=== PATIENT | male | born 1945 | race Caucasian/White ===

== ENCOUNTER 2016-12-16 06:05 | Day surgery (SDC) | payer OTHER ==
[~2016-12-16] VITALS: Ht 172.7 cm; Wt 67.1 kg
[2016-12-16 07:28] VITALS: BP 138/75
[2016-12-16 12:15] VITALS: BP 118/67
== END 2016-12-16 11:10 | disposition home or self-care (01) ==
LOC: DS 06:05 → GI 08:30 → OR 08:30 → DS 11:10
PROVIDERS: Internal Medicine
PROC: 0D728ZZ Dilation of Middle Esophagus, Via Natural or Artificial Opening Endoscopic (ICD-10-PCS; principal; 2016-12-16 08:30)
PROC: 0D738ZZ Dilation of Lower Esophagus, Via Natural or Artificial Opening Endoscopic (ICD-10-PCS; 2016-12-16 08:30)
DX: K22.2 Esophageal obstruction (principal); R13.10 Dysphagia, unspecified; K21.9 Gastro-esophageal reflux disease without esophagitis; I73.9 Peripheral vascular disease, unspecified; Z85.01 Personal history of malignant neoplasm of esophagus; Z98.61 Coronary angioplasty status; Z87.891 Personal history of nicotine dependence; Z68.22 Body mass index [BMI] 22.0-22.9, adult
CPT/HCPCS: 43220; 43235; C1769; J1610; J2250; J2310; J3010; J3490

== ENCOUNTER 2017-06-02 06:29 | Day surgery (SDC) | payer OTHER ==
[~2017-06-02] VITALS: Ht 172.7 cm; Wt 67.6 kg
[2017-06-02 06:48] VITALS: BP 100/55
[2017-06-02 09:56] VITALS: BP 122/64
== END 2017-06-02 10:40 | disposition home or self-care (01) ==
LOC: GI 06:29
PROVIDERS: Internal Medicine
PROC: 0DB58ZX Excision of Esophagus, Via Natural or Artificial Opening Endoscopic, Diagnostic (ICD-10-PCS; principal; 2017-06-02 07:30)
PROC: 0D758ZZ Dilation of Esophagus, Via Natural or Artificial Opening Endoscopic (ICD-10-PCS; 2017-06-02 07:30)
DX: K22.10 Ulcer of esophagus without bleeding (principal)
CPT/HCPCS: 43235; C1769; J1200; J1610; J2250; J2310; J3010; J3490

== ENCOUNTER 2018-09-14 06:42 | Day surgery (SDC) | payer OTHER ==
[~2018-09-14] VITALS: Ht 172.7 cm; Wt 63.5 kg
[2018-09-14 07:50] VITALS: BP 115/61
[2018-09-14 10:47] VITALS: BP 118/59
== END 2018-09-14 11:00 | disposition home or self-care (01) ==
LOC: DS 06:42 → GI 10:30 → OR 10:30 → DS 11:00
PROVIDERS: Internal Medicine
PROC: 0W3P8ZZ Control Bleeding in Gastrointestinal Tract, Via Natural or Artificial Opening Endoscopic (ICD-10-PCS; principal; 2018-09-14 10:30)
PROC: 0D758ZZ Dilation of Esophagus, Via Natural or Artificial Opening Endoscopic (ICD-10-PCS; 2018-09-14 10:30)
DX: Q27.33 Arteriovenous malformation of digestive system vessel (principal); K92.2 Gastrointestinal hemorrhage, unspecified; K21.9 Gastro-esophageal reflux disease without esophagitis; K22.2 Esophageal obstruction; I73.9 Peripheral vascular disease, unspecified; R13.10 Dysphagia, unspecified; Z68.21 Body mass index [BMI] 21.0-21.9, adult; Z87.891 Personal history of nicotine dependence; Z85.01 Personal history of malignant neoplasm of esophagus
CPT/HCPCS: 43235; C1769; J1200; J1610; J2250; J2310; J3010; J3490

== ENCOUNTER 2018-11-23 07:16 | Day surgery (SDC) | payer OTHER ==
[~2018-11-23] VITALS: Ht 172.7 cm; Wt 64.0 kg
[2018-11-23 07:57] VITALS: BP 128/69
[2018-11-23 11:25] VITALS: BP 123/70
== END 2018-11-23 11:05 | disposition home or self-care (01) ==
LOC: GI 07:16 → OR 10:30 → GI 11:05
DX: K22.719 Barrett's esophagus with dysplasia, unspecified (principal); K44.9 Diaphragmatic hernia without obstruction or gangrene; Q27.30 Arteriovenous malformation, site unspecified; M13.88 Other specified arthritis, other site; Z98.890 Other specified postprocedural states; Z95.1 Presence of aortocoronary bypass graft; Z88.8 Allergy status to other drugs, medicaments and biological substances; Z72.89 Other problems related to lifestyle; Z79.899 Other long term (current) drug therapy; Z93.3 Colostomy status; Z90.49 Acquired absence of other specified parts of digestive tract; Z95.2 Presence of prosthetic heart valve; Z85.01 Personal history of malignant neoplasm of esophagus
CPT/HCPCS: 43235; J1200; J1610; J2250; J2310; J3010; J3490

== ENCOUNTER 2019-02-18 10:21 | Inpatient (IN) | payer OTHER ==
[~2019-02-18] VITALS: Ht 172.7 cm; Wt 67.1 kg
[2019-02-18 10:24] VITALS: Ht 172.7 cm; Wt 67.1 kg
--- NOTE | 2019-02-18 10:24 | NUR ---
PT BIB [facility] WITH C/O GENERALIZED WEAKNESS X1 DAY. PER PARAMEDICS PT WAS D/C FROM Wednesday WITH DX PNEUMONIA "BUT ISN'T FEELING BETTER" PER PARAMEDICS PT CHECKED HIS BP AT HOME AND THE SBP WAS "IN THE 60'S" WITH THE DBP "IN THE 30'S". ON SCENE PT WAS HYPOTENSIVE AND RECEIVED 500 NS WIDE OPEN COIL BUILDER. UPON ARRIVAL, PT AAOX4, SKIN PINK DRY AND WARM, PT HYPOTENSIVE, PT SPEAKING FULL CLEAR SENTENCES, PT NOTED TO HAVE A COLOSTOMY BAG PER PT "FROM MY ABDOMINAL AORTA IN 2006 THEY WEREN'T ABLE TO FIX IT" PT DENIES SOB AND/OR CHEST PAIN AT THIS TIME, PT PAIN LEVEL 6/10 "FROM MY ARTHRITIS IN MY BACK" PT GOWNED AND PLACED ON FULL CM, NSR
--- NOTE | 2019-02-18 10:31 | NUR ---
MD HERRERA AT BEDSIDE PERFORMING MSE
--- NOTE | 2019-02-18 10:48 | NUR ---
PORTABLE XRAY AT BEDSIDE
--- NOTE | 2019-02-18 10:53 | NUR ---
RT AT BEDSIDE
--- NOTE | 2019-02-18 10:56 | NUR ---
LAB AT BEDSIDE
--- NOTE | 2019-02-18 11:05 | NUR ---
PT TALKING WITH AT BEDSIDE, RESPS E/U, SKIN PINK DRY AND WARM, PT HAS ASYMPTOMATIC HYPOTENSION AT THIS TIME, PT REMINDED TO PROVIDE URINE SPECIMEN CALLIE, WARM BLANKET PROVIDED PER PT REQUEST AND COMFORT, AT BEDSIDE, CALL LIGHT WITHIN REACH, INSTRUCTED TO CALL IF ANY ASSISTANCE NEEDED
--- NOTE | 2019-02-18 11:06 | NUR ---
MD HERRERA MADE AWARE OF PT VSS. PER MD HERRERA MONITOR BP DURING NS BOLUS INFUSION PER EMAR
[2019-02-18 11:20] LABS: BASOPHIL % 0.1 % (0-2); PLATELET COUNT 154 x10^3mcL (130-400)
[2019-02-18 11:23] LABS: RED CELL DISTRIBUTION WIDTH 17.4 % (11.5-14.5)
[2019-02-18 11:28] LABS: CALCIUM 8.6 mg/dL (8.5-10.1); CARBON DIOXIDE 35.4 mmol/L (21-32); CHLORIDE SERUM 108 mmol/L (98-107); CREATININE SERUM 2.1 mg/dL (0.7-1.3); GLUCOSE SERUM 102 mg/dL (74-106); POTASSIUM SERUM 3.8 mmol/L (3.5-5.1); SODIUM SERUM 145 mmol/L (136-145)
[2019-02-18 11:40] LABS: ALKALINE PHOSPHATASE 42 U/L (46-116); ALT/SGPT 24 U/L (16-63); AST/SGOT 30 U/L (15-37); BILIRUBIN TOTAL 0.5 mg/dL (0.20-1.00); LIPASE 153 IU/L (73-393); T4(THYROXINE) 7.2 ug/dL (4.7-13.3)
[2019-02-18 11:41] LABS: ALBUMIN 2.2 g/dL (3.4-5.0); CHOLESTEROL 60 mg/dL (<200); HDL CHOLESTEROL 12 mg/dL (40-60)
--- NOTE | 2019-02-18 12:00 | NUR ---
PT IN POSITION OF COMFORT, RESPS E/U, AT BEDSIDE, CALL LIGHT WITHIN REACH
--- NOTE | 2019-02-18 12:18 | NUR ---
PT UNABLE TO PROVIDE URINE SPECIMEN AT THIS TIME, PER MD HERRERA VERBAL ORDERS PERFROM STRAIGHT CATH, PT INFORMED AND REFUSED, MD HERRERA MADE AWARE
--- NOTE | 2019-02-18 12:51 | NUR ---
PT RESTING IN POSITION OF COMFORT WITH HIS AT BEDSIDE, RESPS E/U, MD HERRERA MADE AWARE OF NEW VSS
--- NOTE | 2019-02-18 13:01 | NUR ---
PER MD HERRERA VERBAL ORDER, OKAY TO GIVE WATER, WATER GIVEN
--- NOTE | 2019-02-18 13:49 | NUR ---
PT ASLEEP BUT AROUSABLE IN POSITION OF COMFORT, RESPS E/U, DAUGHTER AT BEDSIDE
[2019-02-18] MEDS ORDERED: AMITRIPTYLINE H10 MG PO (13:57)
[2019-02-18] MEDS ORDERED: ASPIR 8181 MG PO (13:57)
[2019-02-18] MEDS ORDERED: BACLOFEN5 MG PO (13:58)
[2019-02-18] MEDS ORDERED: DOXYCYCLINE50 MG PO ×2 (14:01→14:02)
[2019-02-18] MEDS ORDERED: CARVEDILOL6.25 M1 PO (14:01)
[2019-02-18] MEDS ORDERED: FERROUS SULFAT325 M2 PO (14:02)
[2019-02-18] MEDS ORDERED: FENOFIBRATE145 M1 PO (14:02)
[2019-02-18] MEDS ORDERED: ZESTRIL5 MG PO (14:03)
[2019-02-18] MEDS ORDERED: FUROSEMIDE40 MG PO (14:04)
[2019-02-18] MEDS ORDERED: FLOVENT HF0.11 MG/A1 INH (14:06)
[2019-02-18] MEDS ORDERED: ATORVASTATIN CA40 M1 PO (14:09)
[2019-02-18] MEDS ORDERED: METOCLOPRAMIDE H5 M1 PO (14:09)
[2019-02-18] MEDS ORDERED: AMOXICILLIN875 MG PO (14:10)
[2019-02-18] MEDS ORDERED: PEPCID20 MG PO (14:11)
[2019-02-18] MEDS ORDERED: PROBIOTIC250 MG PO (14:11)
[2019-02-18] MEDS ORDERED: POTASSIUM CHLO10 MEQ PO (14:11)
[2019-02-18 14:18] LABS: UA SPECIFIC GRAVITY <=1.005 (1.005-1.035); microscopic required? YES; urine erythrocyte 1+ (NEGATIVE)
[2019-02-18 14:21] LABS: AMPHETAMINE QUAL UR NONE DETECTED (See below)
[2019-02-18 14:49] VITALS: BP 135/61
--- NOTE | 2019-02-18 15:01 | NUR ---
RECEIVED PT FROM ER, PT ADMIT FOR HYPOTENSION, PNA, PT IS A/O X4, VERBAL RESPONSIVE, ABLE TO TELL WHAT HE NEEDS. LUNG SOUND DIM CAROL ANN BASE, DENY ANY SOB, AT THIS TIME, PO2 95% IN ROOM AIR, PT IS ON TELE 14, NSR, DENY ANY CHEST PAIN OR DISCOMFORT, BOWEL SOUND PRESENT ALL 4 QUADRANTS, NO DISTENTION, NO TENDER. PEDAL PULSE PRESENT BOTH FEET, NO EDEMA, IV AT RIGHT FA, NO LEAKING, NO INFITLRAITON. ALL ADLS ASSIST, ALL NEED MET, CALL LIGHT IN REACH, WILL CONTINUE TO MONITOR.
[2019-02-18 16:10] VITALS: BP 130/62
--- NOTE | 2019-02-18 18:07 | NUR ---
PATIENT SITTING UP ON SIDE OF BED EATING DINNER AT THIS TIME. PATIENT TOLERATING DIET WELL. NO APPARENT DISTRESS OR DISCOMFORT NOTED. ALL NEEDS ATTENDED TO. WILL CONTINUE TO MONITOR
--- NOTE | 2019-02-18 18:30 | NUR ---
PATIENT RESTING COMFORTABLY IN BED AT THIS TIME. NO APPARENT DISTRESS OR DISCOMFORT NOTED. IV PATENT AND INTACT. ALL QUESTIONS AND CONCERNS ADDRESSED. SAFETY PRECAUTIONS MAINTAINED. ALL NEEDS ATTENDED TO. WILL ENDORSE ALL CARE TO LEARNING AND DEVELOPMENT ANALYST NURSE
--- NOTE | 2019-02-18 19:30 | NUR ---
REC'D PT FROM DAY NURSE. FAMILY AT BEDSIDE. PT RESTING IN BED. AAOX4, SPEECH CLEAR, FOLLOWS COMMANDS. TELE 14. DENIES CP, DIZZINESS, OR PALPITATIONS. DENIES RESP DISTRESS OR SOB. BREATHING EVEN/UNLABORED ON RA. ABD SOFT/ROUND. RLQ COLOSTOMY WITH DARK GREEN SEMISOLID STOOLS. DENIES TENDERNESS, PAIN, OR N/V. VOIDING FREELY, DENIES DYSURIA. UNABLE TO ASSESS GENITAL REGION D/T FAMILY AT BEDSIDE. WILL CHECK LATER. MILD GEN WEAKNESS. AMB WITH CANE AT HOME. IV TO RFA PATENT AND INFUSING, SITE WNL. CALL LIGHT WITHIN REACH, BED AT LOWEST POSITION. WILL CONTINUE TO MONITOR.
[2019-02-18 20:20] VITALS: BP 127/59
--- NOTE | 2019-02-18 20:24 | NUR ---
REC'D CALL FROM TELE. PT HAD ONE RUN OF GERARDO. PT RESTING IN BED. ASYMPTOMATIC. DENIES ANY CP, PALPTATIONS, OR SOB. RESPIRATIONS EVEN/UNLABORED ON RA. BP 127/59, MAP 81, HR 91. RR 18, SPO2 92% ON RA. SPOKE TO DR. RODRIGUES AND MADE AWARE. ALSO INFORMED RESIDENT OF DUPLICATE BLOOD CULTURES WHEN NEED TO BE D/C'D.
--- NOTE | 2019-02-18 21:41 | NUR ---
DUE MEDS GIVEN. DAUGHTER AND AT BEDSIDE. ASSISTED PT WITH WOUND CARE: PT CLEANED TIP OF PENIS AND FORESKIN WITH SALINE SOAKED GAUZE AND APPLIED HYDROCORTISONE CREAM. 4X4 GAUZE APPLIED ON TOP. ERYTHEMA NOTED TO AROUND FORESKIN AND TIP OF PENIS.
--- NOTE | 2019-02-18 22:41 | NUR ---
SPOKE TO DR. RODRIGUES. 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 PT REPORTS PAIN TO LLE WITH PALPATION D/T TENDONITIS. NO PAIN AT REST. BLE EQUAL IN SIZE. NO REDNESS NOTED. UNABLE TO TOLERATE SCDS D/T PAIN. REC HEP SQ AND US.
--- NOTE | 2019-02-19 01:47 | NUR ---
PT C/O MILD SOB. BREATHING EVEN/UNLABORED ON RA, SPO2 88%. 1L NC APPLIED WITH HUMIDIFIER PER REQUEST. PER DAUGHTER, PT GETS NOSE BLEEDS WITHOUT HUMIDIFIER. SPO2 93% ON 1L NC. CALL LIGHT WITHIN REACH, BED AT LOWEST POSITION. WILL CONTINUE TO MONITOR.
--- NOTE | 2019-02-19 05:15 | NUR ---
BP 165/86, MAP 112, HR 103. SPOKE TO DR. RODRIGUES AND MADE AWARE. STATED WILL ORDER SOMETHING.
[2019-02-19 05:33] VITALS: BP 165/86
--- NOTE | 2019-02-19 06:04 | NUR ---
PT C/O SOB. SPO2 90% ON 1L O2 VIA NC WITH HUMIDIFIER. INCREASED TO 2L NC, SPO2 94%. FINE CRACKLES AUSCULTATED TO BASES. RECHECKED BP 172/75, MAP 107, HR 107. SPOKE TO DR. RODRIGUES. PER DAUGHTER, PT'S WOOD LATHE OPERATOR STATED PT'S COREG SHOULD BE REDUCED FROM 6.25 TO 3.125 MG. RESIDENT STATED WILL ORDER COREG, INITIATE RT PROTOCOL (REC XOPENEX D/T TACHYCARDIA), AND REDUCE IVF TO 50 ML/HR.
[2019-02-19 06:20] VITALS: BP 165/86
[2019-02-19 06:37] LABS: CALCIUM 8.6 mg/dL (8.5-10.1); CARBON DIOXIDE 27.8 mmol/L (21-32); CHLORIDE SERUM 107 mmol/L (98-107); CREATININE SERUM 1.6 mg/dL (0.7-1.3); GLUCOSE SERUM 84 mg/dL (74-106); MAGNESIUM 1.5 mg/dL (1.8-2.4); PHOSPHOROUS 2.8 mg/dL (2.5-4.9); POTASSIUM SERUM 3.7 mmol/L (3.5-5.1); SODIUM SERUM 143 mmol/L (136-145)
[2019-02-19 06:50] LABS: BASOPHIL % 0.2 % (0-2); PLATELET COUNT 170 x10^3mcL (130-400)
[2019-02-19 07:13] LABS: RED CELL DISTRIBUTION WIDTH 17.8 % (11.5-14.5)
--- NOTE | 2019-02-19 07:35 | NUR ---
RECIEVED PT SITTING UP IN CHAIR WITH FAMILY AT BEDSIDE. A/O X4 WITH NO C/O DISTRESS, SOB, OR PAIN. TELE MONITOR#14 CONNECTED TO PT, DENIES CP OR PRESSURE. LUNGS DIM LLL, ON 2LPM O2 NC 96% SAT. RLQ COLOSTOMY INTACT AND PATENT. IV IN RFA INTACT AND PATENT WITH NS RUNNING AT 70/HR. SAFETY PRECAUTIONS IN PLACE, CALL LIGHT WITHIN REACH, WILL MONITOR.
[2019-02-19 08:32] VITALS: BP 152/78
--- NOTE | 2019-02-19 08:45 | NUR ---
DR URBINA AND TEAM AT BEDSIDE WITH PT AND FAMILY DISCUSSING TREATMENTS AND POC, FAMILY AND PT VERBALIZE AN UNDERSTANDING. NO NEW ORDERS AT THIS TIME.
--- NOTE | 2019-02-19 12:17 | NUR ---
PT RESTING IN CHAIR AT THIS TIME WITH FAMILY AT BEDSIDE. NO C/O PAION, DISTRESS, OR SOB. WILL CONTINUE TO MONITOR.
[2019-02-19 12:22] VITALS: BP 116/55
[2019-02-19 16:24] VITALS: BP 111/54
--- NOTE | 2019-02-19 17:49 | NUR ---
PT STABLE AT THIS TIME WITH NO C/O PAIN, DISTRESS, OR SOB. A/O X4 WITH NO REINOSO OR DIZZINESS. TELE#14 CONNECTED TO PT. DENIES CP OR PRESSURE. PT ON 2 LPM O2 NC. RLQ COLOSTOMY INTACT AND DRAINING SOFT BROWN STOOL. SKIN KEPT CLEAN AND DRY ALL SHIFT. OUTPUT OF 150 ML TODAY. SALINE LOCK INTACT AND PATENT AT RFA, NO REDNESS OR INFLAMMATION NOTED. FAMILY AT BEDSIDE. SAFETY PRECAUTIONS IN PLACE, CALL LIGHT WITHIN REACH, WILL ENDORSE CARE TO NIGHT NURSE.
--- NOTE | 2019-02-19 19:10 | NUR ---
REC'D PT FROM DAY NURSE. FAMILY AT BEDSIDE. PT SITTING ON RECLINER. AAOX4, SPEECH CLEAR, FOLLOWS COMMANDS. TELE 14. DENIES CP, DIZZINESS, OR PALPITATIONS. REPORTS MILD SOB WITH MOVEMENT. RESPIRATIONS EVEN/UNLABORED ON 2L O2 VIA NC WITH HUMIDIFIER, SPO2 97%. 02 REDUCED TO 1L NC, SPO2 95%. NO EDEMA NOTED. ABD SOFT/ROUND. DENIES ABD PAIN, TENDERNESS, OR N/V. COLOSTOMY TO RLQ WITH LOOSE BROWN STOOL. STOMA BEEFY RED. VOIDING FREELY USING URINAL. GEN WEAKNESS. AMB WITH WALKER AT HOME. IV TO RFA FLUSHED AND PATENT, SITE WNL. CALL LIGHT WITHIN REACH, BED AT LOWEST POSITION. WILL CONTINUE TO MONITOR.
[2019-02-19 20:39] VITALS: BP 135/60
--- NOTE | 2019-02-20 00:54 | NUR ---
PT RESTING IN BED WITH EYES CLOSED. NO SIGNS OF DISTRESS NOTED. BREATHING EVEN/UNLABORED ON 1L O2 VIA NC, WITH HUMIDIFIER. DAUGHTER SLEEPING AT BEDSIDE ON RECLINER. CALL LIGHT WITHIN REACH, BED AT LOWEST POSITION. WILL CONTINUE TO MONITOR.
--- NOTE | 2019-02-20 03:47 | NUR ---
REC'D CALL FROM TELE. PT HAD 8 SECONDS OF SVT. HR UP TO 160. PT SLEEPING IN BED. DENIES ANY CP, PALPITATIONS, OR SOB. DAUGHTER AT BEDSIDE STATES PT HAS BEEN SLEEPING WELL. VSS. TELE 14 CURRENTLY READING NSR WITH PVC'S. HR 96. DR. RODRIGUES MADE AWARE AND ORDERED STAT EKG. CARDIOPULMONARY NOTIFIED.
[2019-02-20 03:50] VITALS: BP 119/63
--- NOTE | 2019-02-20 03:59 | NUR ---
DR. RODRIGUES MADE AWARE OF STAT EKG RESULTS: NSR WITH R BBB. NO CHANGES IN ORDERS.
[2019-02-20 05:30] VITALS: BP 135/69
--- NOTE | 2019-02-20 06:12 | NUR ---
PT AWAKE AND RESTING IN BED. BREATHING EVEN/UNLABORED ON 1L O2 VIA NC. REPORTS MILD SOB BUT TOLERABLE. DENIES ANY PAIN. IV TO RFA IN PLACE. DAUGHTER AT BEDSIDE. VSS. WILL ENDORSE TO DAY NURSE.
[2019-02-20 06:52] LABS: BASOPHIL % 0.3 % (0-2); PLATELET COUNT 157 x10^3mcL (130-400)
[2019-02-20 07:08] LABS: RED CELL DISTRIBUTION WIDTH 17.5 % (11.5-14.5)
[2019-02-20 07:11] LABS: CARBON DIOXIDE 27.5 mmol/L (21-32); CHLORIDE SERUM 108 mmol/L (98-107); CREATININE SERUM 1.3 mg/dL (0.7-1.3); GLUCOSE SERUM 80 mg/dL (74-106); MAGNESIUM 1.6 mg/dL (1.8-2.4); PHOSPHOROUS 2.3 mg/dL (2.5-4.9); POTASSIUM SERUM 3.4 mmol/L (3.5-5.1); SODIUM SERUM 145 mmol/L (136-145)
--- NOTE | 2019-02-20 07:23 | NUR ---
REPORT TAKEN FROM COMPUTER NETWORK AND SYSTEMS ENGINEER NURSE AT THE BEDSIDE. PT RESTING BUT WOKE FOR REPORT, THOUGH STILL DROWSY. DENIED PAIN, IN NAD. WILL CONTINUE TO MONITOR.
[2019-02-20 09:16] VITALS: BP 120/61
[2019-02-20 12:04] VITALS: BP 130/51
--- NOTE | 2019-02-20 13:26 | NUR ---
Initial Nutrition Assessment: (254T-B) SILVER CANTRELL 73M Dx: Hypotension, PNA PMHx: HTN, Diverticilitis w/ resection & colostomy bag 2007, Cholecystectomy, Esophageal CA, s/p TAVR, s/p MVR PSHx: Cholecystectomy, TAVR, MVR Labs: K 3.4 L, BUN 21 H, Alb 2.2 L, Phos 2.3 L, Alk Phos 42 L, CK 24 L, HDL 12 L, Mg 1.6 L, BNP 354.63 H Meds: Colace, Coreg, Ferrous Sulfate, Lipitor, Pepcid, Reglan, Zestril, Zofran Diet: [facility] PO intake since admission: 58% Ht: 68in Wt: 148# BMI: 22.5 Bed scale: 148# IBW: 154# %IBW: 96% UBW: 147# Age: 73 Food Allergies: NKFA Skin: Erythma tip of penis and foreskin, hydrocortisone BID Gera: 20 Edema: none noted GI: Abd soft/round, BS active, RLQ colostomy w/ loose brown stool, stoma beefy red, denies N/V Last BM: 02/19 RD Note (02/20): Nursing trigger recieved for poor PO >3days, -10# x 1mo. Noted pt admitted for hypotension 80s/40s, possible in the setting of dehydration & medication per MD progress note. Noted Lasix regimen on hold per MD consult. Visited pt bedside w/ pt's and daughter present, daughter and states pt has never been on a 2gm Na diet or a mechanical soft-chopped diet, states pt has no problems chewing/swallowing at this time and previous MDs and hospitals never put him on a cardiac diet/Na restriction. Pt and pt's family requesting to be put on regular diet w/ regular texture. Pt's PO seems to be improving, but pt's daughter states some of the food either seems unappetizing to pt or it is inapprpriate r/t texture. Pt's daughter and states pt does not like Ensure. Pt's daughter also requests to adjust texture of diet r/t does not want pt to lose anymore wt. Spoke w/ Dr Chiang and diet aid regarding diet order texture, confirmed. Problem with N/V/D/C: No Problems with: Chewing: No Swallowing: No Current appetite: good Recent wt change: No %wt change: No Vitamin/Supplement use: Centrum Special diet at home: Regular Physical activity: N/A Nutrition education given (specify specific nutrition education and handout given): None given at this time. Food-drug interactions? Education given? None given at this time. Estimated Nutritional Needs Based on current body weight (67 kg) Energy: 2566-5174 kcal/day (30-35kcal/kg for weight gain) Protein: 80-101 g/day (1.2-1.5g/kg to preserve LBM) Fluid: 2630-4220 mL/day (1 mL/kcal) or per MD Nutrition Diagnosis: Inadequate oral intake r/t c/o taste and texture of food on tray AEB PO intake 58% Intervention 1. Continue 2g Na diet, but w/ regular texture. Monitor/Evaluate Goal: PO intake at least 75% of estimated needs Monitor: PO intake, Labs, GI function F/U in 3-5 days as moderate risk 02/23-02/25
--- NOTE | 2019-02-20 13:26 | NUR ---
Recommendations: 1. Continue 2g Na diet, but w/ regular texture
--- NOTE | 2019-02-20 15:50 | NUR ---
PT TAKEN OFF OF O2. SPO2:98%. NO ACUTE RESP DISTRESS NOTED. WILL CONT.TO MONITOR
[2019-02-20 17:19] VITALS: BP 126/67
--- NOTE | 2019-02-20 18:45 | NUR ---
PT TOLERATED TREATMENT WELL, WILL REPORT TO HSE SPECIALIST NURSE AND ENDORSE CARE.
--- NOTE | 2019-02-20 19:05 | NUR ---
CARE ASSUMED FROM OUTGOING RN. PT RESTING COMFORTABLY IN BED. FAMILY AT BEDSIDE. NO ACUTE DISTRESS NOTED. EVEN AND UNLABORED RESPIRATIONS ON RA. MEDSURG PT. DENIES ANY PAIN AT THIS TIME. IVL INTACT. RLQ COLOSTOMY PATENT AND INTACT, STOMA HEALTHY WITH BROWN LOOSE OUTPUT NOTED. BED IN LOWEST POSITION. SIDE RAILS UPX2. CALL LIGHT WITHIN REACH. WILL CONTINUE TO MONITOR.
--- NOTE | 2019-02-20 19:19 | NUR ---
report given care endorsed
[2019-02-20 20:09] VITALS: BP 136/58
--- NOTE | 2019-02-21 01:26 | NUR ---
PT ASLEEP COMFORTABLY IN BED. NO ACUTE DISTRESS NOTED. EVEN AND UNLABORED RESPIRATIONS ON RA. IVL INTACT. DAUGHTER AT BEDSIDE. BED IN LOWEST POSITION. SIDE RAILS UPX2. CALL LIGHT WITHIN REACH. WILL CONTINUE TO MONITOR.
--- NOTE | 2019-02-21 02:48 | NUR ---
PT C/O IV LEAKING. IV D'JNE, CATHETER INTACT, PRESSURE APPLIED, NO BLEEDING NOTED. IV STARTED TO RFA 22G, GOOD BLOOD RETURN, FLUSING WELL. IVL AT THIS TIME. PT TOLERATED WELL. WILL CONTINUE TO MONITOR.
[2019-02-21 04:48] VITALS: BP 117/51
--- NOTE | 2019-02-21 06:19 | NUR ---
PT SLEPT IN INTERVALS THROUGHOUT THE SHIFT. NO ACUTE CHANGES NOTED. EVEN AND UNLABORED RESPIRATIONS ON RA. IVL PATENT AND INTACT. ALL NEEDS TENDED TO AND MET. SCHEUDULED MEDICATIONS GIVEN, PT REFUSED COLACE. NO C/O PAIN THROUGHOUT THE SHIFT. PT AMBULATED WITH SLOW, STEADY GAIT TO BATHROOM. RLQ COLOSTOMY BAG INTACT, STOMA HEALTHY. BED IN LOWEST POSITION. SIDE RAILS UPX2. CALL LIGHT WITHIN REACH. WILL ENDORSE TO ONCOMING SHIFT.
[2019-02-21 06:25] LABS: BASOPHIL % 0.5 % (0-2); PLATELET COUNT 167 x10^3mcL (130-400)
[2019-02-21 06:48] LABS: CALCIUM 9.4 mg/dL (8.5-10.1); CARBON DIOXIDE 32.7 mmol/L (21-32); CHLORIDE SERUM 108 mmol/L (98-107); CREATININE SERUM 1.1 mg/dL (0.7-1.3); GLUCOSE SERUM 80 mg/dL (74-106); POTASSIUM SERUM 3.7 mmol/L (3.5-5.1); SODIUM SERUM 145 mmol/L (136-145)
[2019-02-21 06:50] LABS: RED CELL DISTRIBUTION WIDTH 17.2 % (11.5-14.5)
--- NOTE | 2019-02-21 07:20 | NUR ---
RECEIVED PT FROM NOC CHICHO RODRIGUEZ. PT AA/OX4 SITTING AT SIDE OF BED TALKING WITH DR. AMIN. DAUGHTER PRESENT. NO S/S OF ACUTE DISTRESS. NO S/S OF PAIN. CALM/COOPERATIVE. IV WNL TO RFA, NO REDNESS, NO SWELLING, NO INFILTRATION. PATENT. NO SOB ON ROOM AIR. FALL PREC IN PLACE. BED IN LOW POSITION. CALL LIGHT WITHIN REACH. WILL CONTINUE TO MONITOR.
[2019-02-21 08:39] VITALS: BP 148/62
--- NOTE | 2019-02-21 11:35 | NUR ---
PT SITTING IN CHAIR AT SIDE OF BED. AA/OX4. RESTING WITH BOTH EYES CLOSED. EASILY AROUSABLE TO VERBAL STIMULI. NO S/S OF ACUTE DISTRESS. NO RESPIRATORY DISTRESS. RR EVEN/UNLABORED. CALM/COOPERATIVE. BED IN LOW POSITION. CALL LIGHT WITHIN REACH. WILL CONTINUE TO MONITOR.
[2019-02-21] MEDS ORDERED: PROAIR HFA8.5 GM IH (12:11)
[2019-02-21] MEDS ORDERED: ZITHROMAX TRI-500 MG PO (12:27)
[2019-02-21] MEDS ORDERED: LASIX40 MG PO (12:36)
[2019-02-21 13:07] VITALS: BP 148/62
--- NOTE | 2019-02-21 15:05 | NUR ---
PT BEING DISCHARGED TO HOME. AWAKE, ALERT, ORIENTED X4. NO S/S OF ACUTE DISTRESS. NO COMPLAINT OF SOB ON ROOM AIR. RR EVEN/UNLABORED. NO CHEST PAIN. CALM/COOPERATIVE. DISCHARGE EDUCATION PROVIDED TO PATIENT, INSTRUCTED TO FOLLOW UP WITH PCP AT UPCOMING APPOINTMENT. VERBALIZED UNDERSTANDING, DAUGHTER ALSO VERBALIZED UNDERSTANDING. IV REMOVED FROM RFA, CATHETER IN TACT, PRESSURE APPLIED. SITE WNL. NO REDNESS, NO SWELLING, NO INFILTRATION. BELONGINGS WITH PATIENT. MEDSURG. TAKEN BY WHEEL CHAIR TO DISCHARGE LOBBY BY RUDI DAMON. ACCOMPANIED BY DAUGHTER. PRESCRIPTIONS FOR MEDICATIONS AND OXYGEN WITH DAUGHTER.
== END 2019-02-21 15:14 | disposition home or self-care (01) | DRG 177 ==
LOC: ED 10:21 → DU 13:57 → MU 13:57 → DU 14:29 → MU 02-20 11:55
PROVIDERS: Emergency Medicine; ADMIT Internal Medicine
DX: J69.0 Pneumonitis due to inhalation of food and vomit (principal); N17.0 Acute kidney failure with tubular necrosis; N18.4 Chronic kidney disease, stage 4 (severe); I25.10 Atherosclerotic heart disease of native coronary artery without angina pectoris; I12.9 Hypertensive chronic kidney disease with stage 1 through stage 4 chronic kidney disease, or unspecified chronic kidney disease; I95.9 Hypotension, unspecified; D64.9 Anemia, unspecified; E78.5 Hyperlipidemia, unspecified; Z93.3 Colostomy status; Z92.3 Personal history of irradiation; Z95.2 Presence of prosthetic heart valve; Z68.21 Body mass index [BMI] 21.0-21.9, adult; Z95.1 Presence of aortocoronary bypass graft; Z87.891 Personal history of nicotine dependence; Z92.21 Personal history of antineoplastic chemotherapy; Z95.5 Presence of coronary angioplasty implant and graft; Z85.01 Personal history of malignant neoplasm of esophagus
CPT/HCPCS: 36600; 82962; 83880; G0378; J0360; J0885-EC; J2185; J2543; J7030; J7040; J7620; J8597; Q0092

== ENCOUNTER 2019-06-14 06:10 | Day surgery (SDC) | payer OTHER ==
[~2019-06-14] VITALS: Ht 172.7 cm; Wt 63.5 kg
[~2019-06-14 06:10] MED LIST: AMITRIPTYLINE H10 MG PO; AMOXICILLIN875 MG PO; ASPIR 8181 MG PO; ATORVASTATIN CA40 M1 PO; BACLOFEN5 MG PO; CARVEDILOL6.25 M1 PO; DOXYCYCLINE50 MG PO; FENOFIBRATE145 M1 PO; FERROUS SULFAT325 M2 PO; FLOVENT HF0.11 MG/A1 INH; FUROSEMIDE40 MG PO; LASIX40 MG PO; METOCLOPRAMIDE H5 M1 PO; PEPCID20 MG PO; POTASSIUM CHLO10 MEQ PO; PROAIR HFA8.5 GM IH; PROBIOTIC250 MG PO; ZESTRIL5 MG PO; ZITHROMAX TRI-500 MG PO
[2019-06-14 06:35] VITALS: BP 125/72
[2019-06-14 10:36] VITALS: BP 106/61
== END 2019-06-14 09:55 | disposition home or self-care (01) ==
LOC: DS 06:10 → GI 08:30 → DS 09:55
DX: K22.8 Other specified diseases of esophagus (principal); K21.9 Gastro-esophageal reflux disease without esophagitis; J44.9 Chronic obstructive pulmonary disease, unspecified; Z88.8 Allergy status to other drugs, medicaments and biological substances; Z91.041 Radiographic dye allergy status; Z79.899 Other long term (current) drug therapy; Z85.01 Personal history of malignant neoplasm of esophagus; Z92.21 Personal history of antineoplastic chemotherapy; Z90.49 Acquired absence of other specified parts of digestive tract; Z98.890 Other specified postprocedural states
CPT/HCPCS: 43235; J1200; J1610; J2250; J2310; J3010; J3490

== ENCOUNTER 2019-09-28 22:18 | Inpatient (IN) | payer OTHER ==
[~2019-09-28] VITALS: Ht 172.7 cm; Wt 69.0 kg
[2019-09-28 22:57] LABS: BASOPHIL % 0.4 % (0-2); PLATELET COUNT 148 x10^3mcL (130-400)
[2019-09-28 22:59] LABS: RED CELL DISTRIBUTION WIDTH 16.4 % (11.5-14.5)
[2019-09-28 23:12] LABS: CALCIUM 8.8 mg/dL (8.5-10.1); CARBON DIOXIDE 29.9 mmol/L (21-32); CHLORIDE SERUM 103 mmol/L (98-107); GLUCOSE SERUM 120 mg/dL (74-106); POTASSIUM SERUM 4.3 mmol/L (3.5-5.1); SODIUM SERUM 140 mmol/L (136-145)
[2019-09-28 23:16] LABS: ALKALINE PHOSPHATASE 56 U/L (46-116); ALT/SGPT 23 U/L (16-63); AST/SGOT 24 U/L (15-37); BILIRUBIN TOTAL 0.5 mg/dL (0.20-1.00); LIPASE 278 IU/L (73-393)
[2019-09-28 23:17] LABS: ALBUMIN 2.9 g/dL (3.4-5.0); TOTAL PROTEIN, SERUM 8.3 g/dL (6.4-8.2)
[2019-09-29] VITALS (7 sets, daily range): BP systolic 100–148; BP diastolic 36–81
[2019-09-29 02:42] LABS: CHOLESTEROL/HDL RATIO 2.8
[2019-09-29 02:44] LABS: T3 TOTAL 1.11 ng/mL
[2019-09-29 02:53] LABS: FREE T4 1.08 ng/dL (0.76-1.46); FREE THYROXINE INDEX 2.9 ug/dL (1.4-4.5); T4(THYROXINE) 7.3 ug/dL (4.7-13.3)
[2019-09-29] MEDS ORDERED: ATORVASTATIN CA20 M1 PO (03:39)
[2019-09-29 05:32] LABS: BASOPHIL % 0.1 % (0-2)
[2019-09-29 05:36] LABS: PLATELET COUNT 104 x10^3mcL (130-400); RED CELL DISTRIBUTION WIDTH 16.5 % (11.5-14.5)
[2019-09-29 06:02] LABS: CALCIUM 7.9 mg/dL (8.5-10.1); CARBON DIOXIDE 23.4 mmol/L (21-32); CHLORIDE SERUM 108 mmol/L (98-107); GLUCOSE SERUM 133 mg/dL (74-106); MAGNESIUM 1.2 mg/dL (1.8-2.4); PHOSPHOROUS 5.3 mg/dL (2.5-4.9); POTASSIUM SERUM 4.4 mmol/L (3.5-5.1); SODIUM SERUM 141 mmol/L (136-145)
[2019-09-29 12:29] LABS: microscopic required? YES; urine erythrocyte 3+ (NEGATIVE)
[2019-09-29 14:03] LABS: CREATININE UR 28.1 mg/dL
[2019-09-29] MEDS ORDERED: KLOR-CON 1010 MEQ PO (14:06)
[2019-09-29] MEDS ORDERED: LASIX40 MG (14:09)
[2019-09-29] MEDS ORDERED: NITROSTAT0.4 MG SL (14:10)
[2019-09-30 00:07] LABS: CALCIUM 8.5 mg/dL (8.5-10.1); CHLORIDE SERUM 107 mmol/L (98-107); CREATININE SERUM 2.6 mg/dL (0.7-1.3); GLUCOSE SERUM 118 mg/dL (74-106); POTASSIUM SERUM 4.2 mmol/L (3.5-5.1); SODIUM SERUM 142 mmol/L (136-145)
[2019-09-30 05:05] VITALS: BP 111/59
[2019-09-30 06:33] LABS: BASOPHIL % 0.2 % (0-2); PLATELET COUNT 96 x10^3mcL (130-400); RED CELL DISTRIBUTION WIDTH 16.4 % (11.5-14.5)
[2019-09-30 06:47] LABS: CALCIUM 8.7 mg/dL (8.5-10.1); CARBON DIOXIDE 26.4 mmol/L (21-32); CHLORIDE SERUM 110 mmol/L (98-107); CREATININE SERUM 2.2 mg/dL (0.7-1.3); GLUCOSE SERUM 102 mg/dL (74-106); MAGNESIUM 1.8 mg/dL (1.8-2.4); PHOSPHOROUS 3.7 mg/dL (2.5-4.9); POTASSIUM SERUM 4.2 mmol/L (3.5-5.1); SODIUM SERUM 144 mmol/L (136-145)
[2019-09-30 09:07] VITALS: BP 94/61
[2019-09-30 11:54] VITALS: BP 107/62
[2019-09-30 17:02] VITALS: BP 122/70
[2019-09-30 20:54] VITALS: BP 122/56
[2019-10-01 05:59] VITALS: BP 125/61
[2019-10-01 06:22] LABS: BASOPHIL % 0.2 % (0-2)
[2019-10-01 06:49] LABS: PLATELET COUNT 95 x10^3mcL (130-400); RED CELL DISTRIBUTION WIDTH 16.1 % (11.5-14.5)
[2019-10-01 07:14] LABS: CALCIUM 8.4 mg/dL (8.5-10.1); CHLORIDE SERUM 113 mmol/L (98-107); CREATININE SERUM 1.6 mg/dL (0.7-1.3); GLUCOSE SERUM 104 mg/dL (74-106); MAGNESIUM 1.8 mg/dL (1.8-2.4); PHOSPHOROUS 2.5 mg/dL (2.5-4.9); POTASSIUM SERUM 4.7 mmol/L (3.5-5.1); SODIUM SERUM 145 mmol/L (136-145)
[2019-10-01 07:42] VITALS: BP 124/72
[2019-10-01 11:45] VITALS: BP 142/78
[2019-10-01 16:28] VITALS: BP 128/62
[2019-10-01 21:31] VITALS: BP 124/77
[2019-10-02 05:28] VITALS: BP 114/60
[2019-10-02 06:31] LABS: BASOPHIL % 0.1 % (0-2)
[2019-10-02 06:37] LABS: PLATELET COUNT 109 x10^3mcL (130-400)
[2019-10-02 06:56] LABS: CALCIUM 8.6 mg/dL (8.5-10.1); CARBON DIOXIDE 27.6 mmol/L (21-32); CHLORIDE SERUM 112 mmol/L (98-107); CREATININE SERUM 1.3 mg/dL (0.7-1.3); GLUCOSE SERUM 70 mg/dL (74-106); POTASSIUM SERUM 4.8 mmol/L (3.5-5.1); SODIUM SERUM 145 mmol/L (136-145)
[2019-10-02 08:25] VITALS: BP 135/65
[2019-10-02 12:34] VITALS: BP 143/77
[2019-10-02 16:06] VITALS: BP 110/49
[2019-10-02 16:29] VITALS: Ht 172.7 cm; Wt 69.0 kg
[2019-10-02 20:31] VITALS: BP 143/69
[2019-10-03 05:24] VITALS: BP 159/53
[2019-10-03 05:26] VITALS: BP 136/75
[2019-10-03 06:58] LABS: CALCIUM 9.2 mg/dL (8.5-10.1); CARBON DIOXIDE 27.1 mmol/L (21-32); CHLORIDE SERUM 111 mmol/L (98-107); CREATININE SERUM 1.1 mg/dL (0.7-1.3); GLUCOSE SERUM 79 mg/dL (74-106); POTASSIUM SERUM 4.5 mmol/L (3.5-5.1); SODIUM SERUM 144 mmol/L (136-145)
[2019-10-03 08:50] VITALS: BP 160/83
[2019-10-03 12:05] VITALS: BP 143/73
[2019-10-03] MEDS ORDERED: FER300 PO (12:32)
[2019-10-03] MEDS ORDERED: PROA PO (12:32)
[2019-10-03] MEDS ORDERED: LAC30L PO (12:33)
[2019-10-03] MEDS ORDERED: PEP20 PO (12:33)
[2019-10-03] MEDS ORDERED: BACO TOP (12:35)
[2019-10-03] MEDS ORDERED: APLICARE ANTIS118 M3 TOP (12:35)
[2019-10-03] MEDS ORDERED: ZITHROMAX TRI-500 MG PO (12:35)
[2019-10-03 13:07] VITALS: BP 143/73
== END 2019-10-03 15:00 | disposition home health service (06) | DRG 871 ==
LOC: ED 22:18 → IC 09-29 01:53 → DU 09-29 01:53 → IC 09-29 02:24 → DU 09-29 15:11 → MU 10-01 13:53
PROVIDERS: Emergency Medicine; Internal Medicine; ADMIT Family Medicine
DX: A41.9 Sepsis, unspecified organism (principal); N17.0 Acute kidney failure with tubular necrosis; R65.21 Severe sepsis with septic shock; J69.0 Pneumonitis due to inhalation of food and vomit; J96.00 Acute respiratory failure, unspecified whether with hypoxia or hypercapnia; K85.90 Acute pancreatitis without necrosis or infection, unspecified; E44.0 Moderate protein-calorie malnutrition; I42.9 Cardiomyopathy, unspecified; I13.0 Hypertensive heart and chronic kidney disease with heart failure and stage 1 through stage 4 chronic kidney disease, or unspecified chronic kidney disease; I48.20 Chronic atrial fibrillation, unspecified; E87.3 Alkalosis; E83.42 Hypomagnesemia; D69.6 Thrombocytopenia, unspecified; I10 Essential (primary) hypertension; E78.5 Hyperlipidemia, unspecified; N18.9 Chronic kidney disease, unspecified; I50.9 Heart failure, unspecified; E87.6 Hypokalemia; R73.03 Prediabetes; D63.8 Anemia in other chronic diseases classified elsewhere; K22.2 Esophageal obstruction; Z85.01 Personal history of malignant neoplasm of esophagus; Z92.3 Personal history of irradiation; Z95.2 Presence of prosthetic heart valve; Z68.22 Body mass index [BMI] 22.0-22.9, adult; Z92.21 Personal history of antineoplastic chemotherapy; Z88.1 Allergy status to other antibiotic agents; Z88.8 Allergy status to other drugs, medicaments and biological substances; Z90.49 Acquired absence of other specified parts of digestive tract; Z93.3 Colostomy status; Z87.891 Personal history of nicotine dependence; Z79.899 Other long term (current) drug therapy
CPT/HCPCS: 36600; 82962; 83880; 84439; 85378; 87116; 87206; 87804; 92526-GN; 92610-GN; 97110-GP; 97112-GP; 97530-GP; A9540; C9113; G0378; J0456; J0696; J1644; J1940; J2405; J2543; J2930; J3370; J3475; J3490; J7030; J7040; J7050; J7060; P9047; Q0092; Q9967

== ENCOUNTER 2019-12-16 15:44 | Emergency (ER) | payer OTHER ==
[~2019-12-16] VITALS: Ht 172.7 cm; Wt 72.6 kg
[~2019-12-16 15:44] MED LIST changes: +APLICARE ANTIS118 M3 TOP; +ATORVASTATIN CA20 M1 PO; +BACO TOP; +FER300 PO; +KLOR-CON 1010 MEQ PO; +LAC30L PO; +LASIX40 MG; +NITROSTAT0.4 MG SL; +PEP20 PO; +PRILOSEC OTC20 M1 PO; +PROA PO
[2019-12-16 16:10] VITALS: Ht 172.7 cm; Wt 72.6 kg
[2019-12-16 17:02] LABS: BASOPHIL % 0.4 % (0-2); PLATELET COUNT 188 x10^3mcL (130-400); RED CELL DISTRIBUTION WIDTH 15.4 % (11.5-14.5)
[2019-12-16 17:37] LABS: CALCIUM 9.3 mg/dL (8.5-10.1); CARBON DIOXIDE 31.3 mmol/L (21-32); CHLORIDE SERUM 103 mmol/L (98-107); CREATININE SERUM 1.6 mg/dL (0.7-1.3); GLUCOSE SERUM 85 mg/dL (74-106); POTASSIUM SERUM 4.4 mmol/L (3.5-5.1); SODIUM SERUM 139 mmol/L (136-145)
[2019-12-16 17:42] LABS: ALKALINE PHOSPHATASE 74 U/L (46-116); ALT/SGPT 38 U/L (16-63); AST/SGOT 33 U/L (15-37); BILIRUBIN TOTAL 0.38 mg/dL (0.20-1.00); LIPASE 160 IU/L (73-393); TOTAL PROTEIN, SERUM 7.3 g/dL (6.4-8.2); TRIGLYCERIDES 78 mg/dL (<150)
[2019-12-16 17:47] LABS: ALBUMIN 2.5 g/dL (3.4-5.0); CHOLESTEROL 103 mg/dL (<200); CHOLESTEROL/HDL RATIO 3.3; HDL CHOLESTEROL 31 mg/dL (40-60)
[2019-12-16 18:17] LABS: T3 TOTAL 1.06 ng/mL
[2019-12-16 18:22] LABS: FREE T4 1.1 ng/dL (0.76-1.46); FREE THYROXINE INDEX 2.6 ug/dL (1.4-4.5); T4(THYROXINE) 7.3 ug/dL (4.7-13.3)
[2019-12-16 18:59] LABS: microscopic required? NO
[2019-12-16 19:01] VITALS: BP 156/69
[2019-12-16 19:17] LABS: urine erythrocyte NEGATIVE (NEGATIVE)
== END 2019-12-16 19:01 | disposition home or self-care (01) ==
LOC: ED 15:44
PROVIDERS: Specialist
DX: R60.1 Generalized edema (principal); I12.9 Hypertensive chronic kidney disease with stage 1 through stage 4 chronic kidney disease, or unspecified chronic kidney disease; N18.9 Chronic kidney disease, unspecified; Z90.49 Acquired absence of other specified parts of digestive tract; Z85.01 Personal history of malignant neoplasm of esophagus; Z88.1 Allergy status to other antibiotic agents; Z88.8 Allergy status to other drugs, medicaments and biological substances
CPT/HCPCS: 83880; 84439; J7030; Q0092

== ENCOUNTER 2020-05-01 06:04 | Day surgery (SDC) | payer OTHER, SELFPAY ==
[~2020-05-01] VITALS: Ht 172.7 cm; Wt 71.7 kg
[~2020-05-01 06:04] MED LIST changes: +MIDODRINE HCL10 MG PO; +SULFACETAMIDE S15 ML OD
[2020-05-01 06:39] VITALS: BP 144/68
[2020-05-01 11:17] VITALS: BP 150/78
== END 2020-05-01 10:45 | disposition home or self-care (01) ==
LOC: DS 06:04 → OR 07:30 → DS 07:30
PROVIDERS: ATTEND Internal Medicine
DX: R13.10 Dysphagia, unspecified (principal); K22.2 Esophageal obstruction; K22.70 Barrett's esophagus without dysplasia; K29.70 Gastritis, unspecified, without bleeding; J44.9 Chronic obstructive pulmonary disease, unspecified; I50.9 Heart failure, unspecified; Z90.49 Acquired absence of other specified parts of digestive tract; Z79.82 Long term (current) use of aspirin
CPT/HCPCS: 43220; 43235; 45330; C1769; J1200; J1610; J2250; J2310; J3010; J3490